=== PATIENT | male | born 1990 | race Two or more races ===

== ENCOUNTER 2022-08-27 12:14 | Emergency (ER) | payer SELFPAY ==
[~2022-08-27] VITALS: Ht 152.4 cm; Wt 59.0 kg
[2022-08-27] MEDS ORDERED: ASPirin 81 mg TAB PO ONE (13:30)
[2022-08-27 14:05] LABS: Basophils # (auto) 0 10 ^3/uL (0-0.2); Basophils % (auto) 0.5 % (0.0-2.0); Eosinophils # (auto) 0.1 10 ^3/uL (0-0.8); Eosinophils % (auto) 0.9 % (0.0-7.0); Hemoglobin 15.4 g/dL (13.5-17.5); Lymphocytes # (auto) 1.5 10 ^3/uL (0.4-5.4); Lymphocytes % (auto) 19.1 % (10.0-50.0); Mean Corpuscular Hemoglobin 28.6 pg (28.0-32.0); Mean Corpuscular Hgb Conc. 33.4 g/dL (32.0-36.0); Mean Corpuscular Volume 85.6 fL (80.0-100.0); Monocytes # (auto) 0.6 10 ^3/uL (0-1.3); Monocytes % (auto) 7.3 % (0.0-12.0); Neutrophils # (auto) 5.5 10 ^3/uL (1.6-8.6); Neutrophils % (auto) 72.2 % (37.0-80.0); Nucleated Red Blood Cells % 0.1 %; Red Blood Cells 5.38 10^6/uL (4.5-5.90); Red Cell Distribution Width 14.3 % (11.8-14.3); White Blood Cell 7.6 10^3/uL (4.4-10.8)
[2022-08-27 14:25] LABS: Albumin 4.1 g/dL (3.4-5.0); Potassium 4.3 mmol/L (3.5-5.1)
[2022-08-27 14:30] LABS: BUN/Creatinine Ratio 10.1; Bilirubin, Total 0.3 mg/dL (0.2-1.0); Total Protein 7.6 g/dL (6.4-8.2)
[2022-08-27] MEDS ORDERED: HYDR-3682 PO (15:55)
[2022-08-27 16:14] VITALS: BP 144/87
== END 2022-08-27 16:13 | disposition home or self-care (01) ==
LOC: ER 12:14
DX: R07.89 Other chest pain (principal); F41.9 Anxiety disorder, unspecified
CPT/HCPCS: 36415; 70450; 71045; 80053; 82962; 84484; 85025; 93005